=== PATIENT | female | born 1965 ===

== ENCOUNTER 2020-09-09 11:46 | Outpatient (CLI) | payer BC ==
[~2020-09-09 11:46] MED LIST: Magnevist 469MG/ML 20 ML VIAL ONE
--- NOTE | 2020-09-09 15:57 | MRI ---
MRI BRAIN WITH AND WITHOUT CONTRAST: Date: 09/09/2020 INDICATION: Aneurysm is listed as reason for exam. Technologist states patient complains of headaches. No comparison studies. FINDINGS: Ventricles have normal size and position. There is no evidence of restricted diffusion. No mass or ed ricki. No white matter abnormality. The intracranial internal carotid arteries, cerebral arteries, and basilar artery appear unremarkable . These vessels show flow-voids on the T2 sequence. These vessels show normal opacification on postco ntrast images. No evidence of aneurysm identified. No abnormal enhancement. Dural venous sinuses appe ar patent. Paranasal sinuses appear clear. IMPRESSION: Unremarkable MRI brain. POS: [facility]
== END 2020-09-09 11:47 | disposition home or self-care (01) ==
LOC: BICMRI 11:46
PROVIDERS: ATTEND Neurological Surgery
DX: I67.1 Cerebral aneurysm, nonruptured (principal)
CPT/HCPCS: 70553; A9579